=== PATIENT | male | born 1960 | race Caucasian/White ===

== ENCOUNTER 2017-09-09 01:07 | Emergency (ER) | payer OTHER ==
[~2017-09-09] VITALS: Ht 175.3 cm; Wt 77.1 kg
[~2017-09-09 01:07] MED LIST changes: -LISI-362 PO; -METO25TA23 PO; -SIMV-49 PO
--- NOTE | 2017-09-09 01:10 | ER Report ---
History and Physical Time Seen By MD: 01:10 HPI/ROS CHIEF COMPLAINT: episodes of left arm and left leg weakness HISTORY OF PRESENT ILLNESS: This is a 57 year old male. He has been having episodes of short term (30-60 seconds) of weakness tonight that started at 2100 hours. He had 5 episodes of this at home. [place] like his left face, arm and leg were heavy, then would go away completely. He would feel a little nauseated and mild shortness of breath right afterward. He came to the hospital ER and has no current symptoms. He has a history of cardiac stent and a new pacemaker in March of 2017. He denies chest pain or palpitations. His notes no slurred speech or confusion. The patient has some abnormal sensation in the face , arm and leg as well. He took 2 full dose aspirin at home. He takes Metoprolol , Lisinopril and Simvastatin. 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 No recent illnesses. He has never had anything like this happen previously. When these happen he almost falls because the left leg will not support him. REVIEW OF SYSTEMS: Constitutional: No fever or chills. Eyes: No vision changes. ENT: No sore throat. No congestion. No hearing changes. Cardiovascular: No chest pain. No palpitations. Respiratory: No cough. Gastrointestinal: No abdominal pain. No change in bowel movements. Genitourinary: No dysuria. No frequency Musculoskeletal: No back pain. No extremity pain. Skin: No rashes. No bruising. Neurological: No headache Allergies: Coded Allergies: No Known Drug Allergies (Unverified , 06/02/16) Home Meds Reported Medications Lisinopril (LISINOPRIL) 10 Mg Tablet, 10 MG PO QDAY, TAB 09/09/17 Metoprolol Succinate (METOPROLOL SUCCINATE) 25 Mg Tab.er.24h, 1 TAB PO QDAY, TAB 09/09/17 Simvastatin (SIMVASTATIN) 20 Mg Tablet, PO HS, TAB 09/09/17 Discontinued Reported Medications [Metoprolol] No Conflict Check, PO DAILY 11/09/12 [Lisinopril] No Conflict Check, PO DAILY 11/09/12 Discontinued Scripts Hydrocodone Bit/Acetaminophen (HYDROCODON-ACETAMINOPHEN 5-325) 1 Each Tablet, 1 EACH PO Q4-6H for PAIN, #15 Prov:CATERINA GREY DO 07/17/15 Clindamycin Hcl (CLINDAMYCIN HCL) 300 Mg Capsule, 300 MG PO Q6H, #40 CAPSULE Prov:CATERINA GREY DO 07/17/15 Past Medical/Surgical History History of [place] and cardiac stent, cardiac pacemaker, hypertension, hyperlipidemia , inguinal hernia repair Reviewed Nurses Notes: Yes Hx Smoking: Yes (1/2 PPD) Smoking Status: Current: Every Day Smoker Hx Substance Use Disorder: No Hx Alcohol Use: No Constitutional Vital Sign - Last 24 Hours 09/09/17 09/09/17 09/09/17 09/09/17 01:07 01:22 01:24 01:30 Pulse ? B/P (MAP) 148/98 (115) 141/89 (106) 09/09/17 09/09/17 09/09/17 09/09/17 01:37 01:52 02:00 02:05 Temp 98.0 Pulse 74 94 73 Resp 19 17 B/P (MAP) 146/90 (108) Pulse Ox 91 95 94 09/09/17 09/09/17 09/09/17 09/09/17 02:20 02:55 03:00 03:10 Pulse 74 70 76 Resp 21 19 35 B/P (MAP) 127/78 (94) Pulse Ox 94 92 96 09/09/17 09/09/17 09/09/17 09/09/17 03:25 03:30 03:30 03:40 Pulse ??? 71 Resp 14 7 B/P (MAP) 148/90 (109) Pulse Ox 96 97 O2 Flow Rate 2.0 09/09/17 09/09/17 09/09/17 09/09/17 03:45 04:00 04:05 04:20 Pulse 74 75 72 69 Resp 10 12 28 13 B/P (MAP) 149/98 (115) Pulse Ox 97 81 97 98 09/09/17 09/09/17 09/09/17 04:25 04:30 04:40 Pulse 73 66 Resp 14 33 B/P (MAP) 144/104 (117) Pulse Ox 94 91 Physical Exam General Appearance: The patient is alert. No acute distress. Non-toxic in appearance. Eyes: Pupils are equal, round. Reactive to light. No pallor, injection or icterus. Extraocular movements are intact. No nystagmus. No visual field deficits. ENT: Mucous membranes are moist. Normal oral mucosa. Posterior oropharynx is normal. Neck: Supple and non tender. No lymphadenopathy. Respiratory: Breathing easily and unlabored. Lungs are clear to auscultation. Cardiovascular: Regular rate and rhythm. No murmurs, gallops or rubs. Normal capillary refill. No edema. No carotid bruits. Gastrointestinal: Abdomen is soft and non tender. Nondistended. Normal active bowel sounds. Neurological: Alert and oriented x3. Cranial nerves with eye exam as noted above. Midline tongue and symmetric palate elevation. Normal facial sensation throughout and no facial weakness. No focal neurologic deficits in the extremities on exam with normal strength and sensation bilaterally. Normal reflexes. Normal heel to jewell and finger to nose. Skin: Warm and dry. No rashes. Musculoskeletal: Extremities are nontender. Full range of motion. DIFFERENTIAL DIAGNOSIS: After history and physical exam, differential diagnosis was considered for a patient with focal neurologic deficits that are short lived and then go back to normal. Concern for possible source of emboli somewhere in the body such as carotid sore from his heart/pacemaker area. Prior to history and physical, a stat head CT was obtained and this result is pending. NIH stroke scale was also done as noted. NIH stroke scale was done and the patient scored zero points at this time. No deficits at this time. Medical Decision Making Data Points Result Diagram: 09/09/1712909/09/17129 Laboratory Hematology Test 09/09/17 01:30 09/09/17 01:46 09/09/17 03:20 Red Blood Count 5.05 M/uL (4.00-5.60) Mean Corpuscular Volume 85.9 fL (80.0-96.0) Mean Corpuscular Hemoglobin 29.6 pg (26.0-33.0) Mean Corpuscular Hemoglobin Concent 34.5 g/dL (32.0-36.0) Red Cell Distribution Width 14.2 % (11.5-14.5) Mean Platelet Volume 8.1 fL (7.2-11.1) Neutrophils (%) (Auto) 59.5 % (39.4-72.5) Lymphocytes (%) (Auto) 23.2 % (17.6-49.6) Monocytes (%) (Auto) 11.5 % (4.1-12.4) Eosinophils (%) (Auto) 4.6 % (0.4-6.7) Basophils (%) (Auto) 1.2 % (0.3-1.4) Nucleated RBC Relative Count (auto) 0.0 /100WBC Neutrophils # (Auto) 4.6 K/uL (2.0-7.4) Lymphocytes # (Auto) 1.8 K/uL (1.3-3.6) Monocytes # (Auto) 0.9 K/uL (0.3-1.0) Eosinophils # (Auto) 0.4 K/uL (0.0-0.5) Basophils # (Auto) 0.1 K/uL (0.0-0.1) Nucleated RBC Absolute Count (auto) 0.00 K/uL Prothrombin Time 12.6 seconds (12.0-14.4) Prothromb Time International Ratio 0.95 Activated Partial Thromboplast Time 27 seconds (23-35) Sodium Level 139 mmol/L (137-145) Potassium Level 4.1 mmol/L (3.5-5.0) Chloride Level 106 mmol/L (98-107) Carbon Dioxide Level 23 mmol/L (22-30) Blood Urea Nitrogen 24 mg/dl (9-21) Creatinine 1.00 mg/dl (0.66-1.25) Glomerular Filtration Rate Calc > 60.0 Random Glucose 111 mg/dl (75-110) Calcium Level 8.9 mg/dl (8.4-10.2) Total Bilirubin 0.4 mg/dl (0.2-1.3) Aspartate Amino Transf (AST/SGOT) 27 U/L (0-35) Alanine Aminotransferase (ALT/SGPT) 40 U/L (0-56) Alkaline Phosphatase 73 U/L (0-126) Total Protein 7.2 gm/dl (6.3-8.2) Albumin 4.1 g/dl (3.5-5.0) Whole Blood Glucose 132 mg/DL (75-110) Troponin I < 0.012 ng/ml Chemistry Test 09/09/17 01:30 09/09/17 01:46 09/09/17 03:20 White Blood Count 7.7 k/uL (4.5-11.0) Red Blood Count 5.05 M/uL (4.00-5.60) Hemoglobin 15.0 g/dL (14.0-18.0) Hematocrit 43.4 % (42.0-52.0) Mean Corpuscular Volume 85.9 fL (80.0-96.0) Mean Corpuscular Hemoglobin 29.6 pg (26.0-33.0) Mean Corpuscular Hemoglobin Concent 34.5 g/dL (32.0-36.0) Red Cell Distribution Width 14.2 % (11.5-14.5) Platelet Count 173 K/uL (150-450) Mean Platelet Volume 8.1 fL (7.2-11.1) Neutrophils (%) (Auto) 59.5 % (39.4-72.5) Lymphocytes (%) (Auto) 23.2 % (17.6-49.6) Monocytes (%) (Auto) 11.5 % (4.1-12.4) Eosinophils (%) (Auto) 4.6 % (0.4-6.7) Basophils (%) (Auto) 1.2 % (0.3-1.4) Nucleated RBC Relative Count (auto) 0.0 /100WBC Neutrophils # (Auto) 4.6 K/uL (2.0-7.4) Lymphocytes # (Auto) 1.8 K/uL (1.3-3.6) Monocytes # (Auto) 0.9 K/uL (0.3-1.0) Eosinophils # (Auto) 0.4 K/uL (0.0-0.5) Basophils # (Auto) 0.1 K/uL (0.0-0.1) Nucleated RBC Absolute Count (auto) 0.00 K/uL Prothrombin Time 12.6 seconds (12.0-14.4) Prothromb Time International Ratio 0.95 Activated Partial Thromboplast Time 27 seconds (23-35) Glomerular Filtration Rate Calc > 60.0 Calcium Level 8.9 mg/dl (8.4-10.2) Total Bilirubin 0.4 mg/dl (0.2-1.3) Aspartate Amino Transf (AST/SGOT) 27 U/L (0-35) Alanine Aminotransferase (ALT/SGPT) 40 U/L (0-56) Alkaline Phosphatase 73 U/L (0-126) Total Protein 7.2 gm/dl (6.3-8.2) Albumin 4.1 g/dl (3.5-5.0) Whole Blood Glucose 132 mg/DL (75-110) Troponin I < 0.012 ng/ml Coagulation Test 09/09/17 01:30 Prothrombin Time 12.6 seconds Prothromb Time International Ratio 0.95 Activated Partial Thromboplast Time 27 seconds EKG/Imaging EKG Interpretation 12 lead EKG: At 0130 hours Rhythm: normal sinus rhythm, rate 75 [place]: normal QRS: Old inferior infarct with Q waves in the inferior leads ST segments: Nonspecific T-wave changes with some T-wave inversions in the inferior leads. No ST segment elevation or depression 12 lead EKG: At 0320 hours Rhythm: normal sinus rhythm, rate 70 [place]: normal QRS: Old inferior infarct ST segments: Nonspecific T-wave changes with some T-wave inversion in the inferior leads Monitor Interpretation: Other (occasionally paced, occasionally sinus) Imaging EXAMINATION: CT Head Without Contrast 09/09/2017 1:14 AM HISTORY: Woke up with left arm and leg weakness. History of [place]. TECHNIQUE: Contiguous axial images were obtained from the skull base to the vertex without intravenous contrast. One of the following dose optimization techniques was utilized in the performance of this exam: Automated exposure control; adjustment of the mA and/ or kV according to the patient's size; or use of an iterative reconstruction technique. Specific details can be referenced in the facility's radiology CT exam operational policy. COMPARISON STUDIES: none. FINDINGS: Ventricles / sulci / fissures: negative Masses / hemorrhage / midline shift: negative White matter: negative Kirby-white differentiation: negative Extra-axial spaces: negative Dural venous sinuses / arterial structures: negative Skull base / calvarium: negative Visualized mastoid air cells / paranasal sinuses: negative IMPRESSION: Normal head CT. No evidence of mass, acute ischemia or hemorrhage. Report Dictated By: Pancho Garcia MD at 09/09/2017 1:31 AM EXAMINATION: Portable AP Chest 09/09/2017 1:33 AM HISTORY: Left arm and leg weakness. History of FL. COMPARISON: 03/27/2007 FINDINGS: Cardiomediastinal contours: Normal heart size. Atherosclerotic aorta. Transvenous pacemaker lead tips project over the right atrium and right ventricle. Lungs and pleura: Normal Bones/soft tissues: Normal Cardiac leads are present. IMPRESSION: No acute cardiopulmonary finding. Report Dictated By: Pancho Garcia MD at 09/09/2017 1:52 AM ED Course/Re-evaluation Clinical Indication for ER IV: IV Access ED Course CT scan done, NIH stroke scale done, score 0. IV access obtained and labs sent. Fingerstick blood glucose 132. CT scan of the head noncontrast was negative. Normal chest x-ray. EKG is electronic ventricular pacemaker. Labs are unremarkable. Troponin is negative. After this evaluation, the patient begin having further episodes. He had 3 more episodes with symptoms lasting about 30 seconds to one minute and time. On the last episode, during evaluation the patient did have slight decrease in strength in the left arm and left leg compared to the right side and his did notice some increased facial droop however these have resolved completely again. I called and spoke with Dr. Lucia, at [facility] in [facility]. After our conversation, we elected to do a CT angiogram of the head and carotids. The patient has taken 2 full dose aspirin earlier this evening prior to coming to the hospital. At this point we are going to hold off on using any heparin, consideration of thrombolytics if advancing on to CVA instead of transient attacks while we do further investigation with the CT angiography. CTA of the neck/carotids and CTA of the head were obtained. He had a mild 25% stenosis of the origin of the left vertebral artery, but no other significant stenosis. He has had several more episodes while getting these studies. These all had symptoms that lasted longer, but then would resolve. He is more and more fatigued with these and naturally he and family members are very scared about this. I called and spoke with Dr. Lucia again at [facility]. We are going to transfer the patient to them for further evaluation and treatment. We discussed further treatments and will give a loading dose of 600mg of Plavix and arrange ground ambulance transfer there. I have discussed the plans with the patient and family. While awaiting transfer, the patient did continue to have more episodes. The episodes seemed to have slightly longer recovery and more pronounced weakness during the episodes. He was very fatigued and continued to have some shortness of breath after the episodes. He would still recover functioning in between episodes, so still no evidence of a permanent deficit. To help with the transfer , we did provide him with a dose of 0.5mg of Ativan prior to departing. Decision to Disposition Date: Sep 09, 2017 Decision to Disposition Time: 03:43 Transfer Facility Patient was transferred to [facility] via ambulance. This is felt to be the appropriate facility based on the concern of frequent transient ischemic attacks and is a stroke center. The transfer was emergent, and was required because the capabilities of the receiving hospital. Consent for transfer was obtained from the patient. See EMTALA for transfer orders. Depart Departure Latest Vital Signs Vital Signs Date Time Temp Pulse Resp B/P (MAP) Pulse Ox O2 Delivery O2 Flow Rate FiO2 09/09/17 04:40 66 33 91 09/09/17 04:30 144/104 (117) 09/09/17 03:30 2.0 09/09/17 02:00 98.0 Impression: Primary Impression: Crescendo transient ischemic attacks Condition: Condition Unchanged Disposition: XFER TO [facility]UTE [facility]ARE [facility] Problem Qualifiers Primary Impression: Crescendo transient ischemic attacks Transient cerebral ischemia type: unspecified Qualified Codes: G45.9 - Transient cerebral ischemic attack, unspecified JACKELYN ADAMSON MD Sep 09, 2017 01:10
--- NOTE | 2017-09-09 01:40 | RADIOLOGY IMAGING REPORT ---
FACILITY: [facility] PATIENT NAME: Dariel Solis : 1960 MR: [id number] V: [id number] EXAM DATE: ORDERING PHYSICIAN: JACKELYN ADAMSON TECHNOLOGIST: [place] [facility] [place] Patient: Dariel Solis : 1960 Visit/Account:[id number] Date of Sevice: 09/09/2017 EXAMINATION: CT Head Without Contrast 09/09/2017 1:14 AM HISTORY: Woke up with left arm and leg weakness. History of [place]. TECHNIQUE: Contiguous axial images were obtained from the skull base to the vertex without intraven ous contrast. One of the following dose optimization techniques was utilized in the performance of this exam: Autom ated exposure control; adjustment of the mA and/or kV according to the patient's size; or use of an i terative reconstruction technique. Specific details can be referenced in the facility's radiology C T exam operational policy. COMPARISON STUDIES: none. FINDINGS: Ventricles / sulci / fissures: negative Masses / hemorrhage / midline shift: negative White matter: negative Kirby-white differentiation: negative Extra-axial spaces: negative Dural venous sinuses / arterial structures: negative Skull base / calvarium: negative Visualized mastoid air cells / paranasal sinuses: negative IMPRESSION: Normal head CT. No evidence of mass, acute ischemia or hemorrhage. Report Dictated By: Pancho Garcia MD at 09/09/2017 1:31 AM Report E-Signed By: Pancho Garcia MD at 09/09/2017 1:34 AM WSN:[id number]
[2017-09-09 01:43] LABS: PLATELET COUNT, AUTOMATED 173 K/uL (150-450)
[2017-09-09 01:47] LABS: INR 0.95
--- NOTE | 2017-09-09 01:58 | RADIOLOGY IMAGING REPORT ---
FACILITY: [facility] PATIENT NAME: Dariel Solis : 1960 MR: [id number] V: [id number] EXAM DATE: ORDERING PHYSICIAN: JACKELYN ADAMSON TECHNOLOGIST: Location: [facility] - [place] Patient: Dariel Solis : 1960 Visit/Account:[id number] Date of Sevice: 09/09/2017 EXAMINATION: Portable AP Chest 09/09/2017 1:33 AM HISTORY: Left arm and leg weakness. History of [place]. COMPARISON: 03/27/2007 FINDINGS: Cardiomediastinal contours: Normal heart size. Atherosclerotic aorta. Transvenous pacemaker lead tips project over the right atrium and right ventricle. Lungs and pleura: Normal Bones/soft tissues: Normal Cardiac leads are present. IMPRESSION: No acute cardiopulmonary finding. Report Dictated By: Pancho Garcia MD at 09/09/2017 1:52 AM Report E-Signed By: Pancho Garcia MD at 09/09/2017 1:53 AM WSN:[id number]
[2017-09-09] MEDS ORDERED: SIMV-49 PO (02:03)
[2017-09-09] MEDS ORDERED: METO25TA23 PO (02:03)
[2017-09-09] MEDS ORDERED: LISI-362 PO (02:03)
[2017-09-09] MEDS ORDERED: ONDANSETRON 4 MG/2 ML VIAL IVP ONE (02:20)
[2017-09-09] MEDS ORDERED: NS 0.9% 50 ML VIAL 100 ML ONE (02:22)
[2017-09-09] MEDS ORDERED: IOPAMIDOL 76% 75 ML INFUS BTL 75 ML ONE (02:22)
--- NOTE | 2017-09-09 03:21 | RADIOLOGY IMAGING REPORT ---
FACILITY: [facility] [place] PATIENT NAME: Dariel Solis : 1960 MR: [id number] V: [id number] EXAM DATE: ORDERING PHYSICIAN: JACKELYN ADAMSON TECHNOLOGIST: Location: [facility] - [place] Patient: Dariel Solis : 1960 Visit/Account:[id number] Date of Sevice: 09/09/2017 ADDENDUM #1 Correction to the examination title: CTA NECK/CAROTIDS AND CTA BRAIN W CONTR Report Dictated By: Candis Kemp at 09/09/2017 3:13 AM Report E-Signed By: Candis Kemp at 09/09/2017 3:14 AM ORIGINAL REPORT CTA NECK/CAROTIDS W W/O CONTR HISTORY: Left arm and leg weakness. COMPARISON: Head CT 09/09/2017 at 1:18 AM. TECHNIQUE: Overlapping thin sections were obtained during a bolus of IV contrast from the aortic arch through the brain vertex. Reconstruction of the source data set includes multiplanar 2D in the sagit rocío and coronal planes, and 3D coronal thin slab MIP series. Level Vial Curvature Gauger images have been stored o n PACS. Stenosis of the internal carotid arteries are calculated using NASCET criteria. One of the following dose optimization techniques was utilized in the performance of this exam: Autom ated exposure control; adjustment of the mA and/or kV according to the patient's size; or use of an i terative reconstruction technique. Specific details can be referenced in the facility's radiology CT exam operational policy. CONTRAST: 75 mL of IV Isovue-370. FINDINGS: CTA HEAD: There is mild atherosclerosis of the cavernous and ophthalmic segments of the internal carotid arteri es. No aneurysm, thrombus/embolus, stenosis, or higher flow vascular malformation. CTA NECK: Aortic arch and great vessels: There is mild atherosclerosis, but no aneurysm or dissection. There is mild atherosclerosis of the origins of the subclavian arteries and of the left common carotid artery . No stenosis. Right CCA / ICA / ECA: There is mild atherosclerosis at the carotid bifurcation. No stenosis. Left CCA / ICA / ECA: There is mild atherosclerosis at the carotid bifurcation. No stenosis. Vertebral arteries: The right vertebral artery is normal. There is mild atherosclerosis at the origin of the left vertebral artery, causing 25 percent stenosis. The left vertebral artery is dominant. Soft tissues: Normal. Pacemaker generator is at the left upper chest. Leads are visible as far as the superior vena cava. Musculoskeletal: There is straightening of the normal cervical lordosis that appears positional. Ther e is multilevel degenerative change of the spine that is greatest at C5-6 and C6-7. At these levels, there are severe loss of disc height and circumferential disc osteophytes. Prevertebral soft tissues are within normal limits. There is mild to moderate spinal stenosis at C5-6, and there is mild spinal stenosis at C6-7 secondary to degenerative changes. Upper chest: There is mild dependent atelectasis. IMPRESSION: 1. Mild intra- and extracranial atherosclerosis as above. There is no stenosis of the carotid arterie s or of the right vertebral artery. 2. There is 25 percent stenosis of the left vertebral artery origin. 3. Degenerative changes of the spine. There is mild to moderate spinal stenosis at C5-6 and mild spin al stenosis at C6-7. These findings were discussed by phone with JACKELYN ADAMSON on 09/09/2017 3:06 AM. Report Dictated By: Candis Kemp at 09/09/2017 2:53 AM Report E-Signed By: Candis Kemp at 09/09/2017 3:11 AM WSN:[id number]
--- NOTE | 2017-09-09 03:21 | RADIOLOGY IMAGING REPORT ---
[place] [facility] [place] Dariel Solis : 1960 MR: [id number] V: [id number] EXAM DATE: ORDERING PHYSICIAN: JACKELYN ADAMSON TECHNOLOGIST: Location: [facility] Patient: Dariel Solis : 1960 Visit/Account:[id number] Date of Sevice: 09/09/2017 CTA NECK/CAROTIDS AND CTA BRAIN W CONTR HISTORY: Left arm and leg weakness. COMPARISON: Head CT 09/09/2017 at 1:18 AM. TECHNIQUE: Overlapping thin sections were obtained during a bolus of IV contrast from the aortic arch through the brain vertex. Reconstruction of the source data set includes multiplanar 2D in the sagit rocío and coronal planes, and 3D coronal thin slab MIP series. Technical Recruiter images have been stored o n PACS. Stenosis of the internal carotid arteries are calculated using NASCET criteria. One of the following dose optimization techniques was utilized in the performance of this exam: Autom ated exposure control; adjustment of the mA and/or kV according to the patient's size; or use of an i terative reconstruction technique. Specific details can be referenced in the facility's radiology CT exam operational policy. CONTRAST: 75 mL of IV Isovue-370. FINDINGS: CTA HEAD: There is mild atherosclerosis of the cavernous and ophthalmic segments of the internal carotid arteri es. No aneurysm, thrombus/embolus, stenosis, or higher flow vascular malformation. CTA NECK: Aortic arch and great vessels: There is mild atherosclerosis, but no aneurysm or dissection. There is mild atherosclerosis of the origins of the subclavian arteries and of the left common carotid artery . No stenosis. Right CCA / ICA / ECA: There is mild atherosclerosis at the carotid bifurcation. No stenosis. Left CCA / ICA / ECA: There is mild atherosclerosis at the carotid bifurcation. No stenosis. Vertebral arteries: The right vertebral artery is normal. There is mild atherosclerosis at the origin of the left vertebral artery, causing 25 percent stenosis. The left vertebral artery is dominant. Soft tissues: Normal. Pacemaker generator is at the left upper chest. Leads are visible as far as the superior vena cava. Musculoskeletal: There is straightening of the normal cervical lordosis that appears positional. Ther e is multilevel degenerative change of the spine that is greatest at C5-6 and C6-7. At these levels, there are severe loss of disc height and circumferential disc osteophytes. Prevertebral soft tissues are within normal limits. There is mild to moderate spinal stenosis at C5-6, and there is mild spinal stenosis at C6-7 secondary to degenerative changes. Upper chest: There is mild dependent atelectasis. IMPRESSION: 1. Mild intra- and extracranial atherosclerosis as above. There is no stenosis of the carotid arterie s or of the right vertebral artery. 2. There is 25 percent stenosis of the left vertebral artery origin. 3. Degenerative changes of the spine. There is mild to moderate spinal stenosis at C5-6 and mild spin al stenosis at C6-7. These findings were discussed by phone with JACKELYN ADAMSON on 09/09/2017 3:06 AM. Report Dictated By: Candis Kemp at 09/09/2017 3:13 AM Report E-Signed By: Candis Kemp at 09/09/2017 3:13 AM WSN:[id number]
--- NOTE | 2017-09-09 03:24 | EKG ---
FACILITY: [facility] PATIENT NAME: MARIA INES LAYNE : [id number] MR: [id number] V: [id number] EXAM DATE: ORDERING PHYSICIAN: JACKELYN ADAMSON TECHNOLOGIST: Test Reason : Blood Pressure : / mmHG Vent. Rate : 070 BPM Atrial Rate : 070 BPM P-R Int : 164 ms QRS Dur : 122 ms QT Int : 420 ms P-R-T Axes : 045 -10 -32 degrees QTc Int : 453 ms Normal sinus rhythm Inferior infarct , age undetermined Abnormal ECG No previous ECGs available Confirmed by ASHLEY HUTCHINS ([id number]) on 09/09/2017 7:19:09 AM Referred By: Confirmed By:ASHLEY HUTCHINS
--- NOTE | 2017-09-09 03:24 | EKG ---
FACILITY: [facility] PATIENT NAME: MARIA INES LAYNE : [id number] MR: [id number] V: [id number] EXAM DATE: ORDERING PHYSICIAN: JACKELYN ADAMSON TECHNOLOGIST: Test Reason : WEAKNESS Blood Pressure : / mmHG Vent. Rate : 075 BPM Atrial Rate : 075 BPM P-R Int : 164 ms QRS Dur : 118 ms QT Int : 422 ms P-R-T Axes : 052 -17 -37 degrees QTc Int : 471 ms Electronic ventricular pacemaker When compared with ECG of 11-AUG-2016 14:31, Electronic ventricular pacemaker has replaced Sinus rhythm Confirmed by ASHLEY HUTCHINS ([id number]) on 09/09/2017 7:19:01 AM Referred By: SNOW Confirmed By:ASHLEY HUTCHINS
[2017-09-09] MEDS ORDERED: CLOPIDOGREL BISULFATE 75MG TAB PO ONE (03:35)
[2017-09-09 04:30] VITALS: BP 144/104
[2017-09-09] MEDS ORDERED: LORazepam 2 MG/ML VIAL ONE (04:44)
[2017-09-09] MEDS ORDERED: LORazepam 2 MG/ML VIAL IVP ONE (04:45)
== END 2017-09-09 04:55 | disposition short-term general hospital (02) ==
LOC: ER 01:09
DX: G45.9 Transient cerebral ischemic attack, unspecified (principal)
CPT/HCPCS: 36416; 70450; 70496; 70498; 71045; 82948; 84484; 85025; 85610; 85730; 93005; 96374; 96375; 99285; J2060; J2405; J7050; Q9967; 82040; 82247; 82310; 82374; 82435; 82565; 82947; 84075; 84132; 84155; 84295; 84450; 84460; 84520

== ENCOUNTER → 2017-09-09 | Outpatient (CLI) | payer OTHER ==
[~2017-09-09] MED LIST: CLIN300C99 PO; LISI-362 PO; LISINOPRIL PO; LOR5/325 PO; METO25TA23 PO; METOPROLOL PO; SIMV-49 PO
== END ==
LOC: AMB 04:25
PROVIDERS: ATTEND Nurse Practitioner
DX: G45.9 Transient cerebral ischemic attack, unspecified (principal)
CPT/HCPCS: A0425; A0426

== ENCOUNTER 2018-05-13 09:07 | Emergency (ER) | payer OTHER ==
[~2018-05-13 09:07] MED LIST changes: +LISI-362 PO; +METO25TA23 PO; +SIMV-49 PO
--- NOTE | 2018-05-13 09:24 | ER Report ---
History and Physical Time Seen By MD: 09:18 Hx. of Stated Complaint: PATIENT REPORTS BLOOD AND BLOOD CLOTS IN URINE. HPI/ROS CHIEF COMPLAINT: Blood in urine HISTORY OF PRESENT ILLNESS: This is a 57-year-old male. He started having blood in his urine last night. He has been urinating gross hematuria with clots. He has had some dark or rust colored urine a couple of times over the past few months that it always went away and went back to normal. He has a little bit of discomfort and fullness feeling like he is not emptying his bladder completely, although he is able to still urinate. No pain in the back. Mild discomfort in the lower abdomen anteriorly. No other bleeding such as nosebleeds, blood in the stools, or bruising. He does take Plavix and aspirin. Denies any fevers or chills. Normal bowels without constipation or diarrhea. No history of hematuria in the past. No history of kidney problems, bladder problems, or problems with this prostate that he is aware of. Denies any chest pain or shortness of breath. No weakness. REVIEW OF SYSTEMS: As above. Allergies: Coded Allergies: No Known Drug Allergies (Unverified , 06/02/16) Home Meds Active Scripts Tamsulosin Hcl (FLOMAX) 0.4 Mg Cap.er.24h, 0.4 MG PO QDAY, #7 CAP 0 Refills Prov:JACKELYN ADAMSON MD 05/13/18 Sulfamethoxazole/Trimet 800-160 Mg Tab (BACTRIM DS TABLET) 1 Each Tablet, 1 TAB PO Q12H, #14 TAB 0 Refills Prov:JACKELYN ADAMSON MD 05/13/18 Reported Medications Metoprolol Tartrate (METOPROLOL TARTRATE) 25 Mg Tablet, 2 TAB PO BID, TAB 05/13/18 Lisinopril (LISINOPRIL) 10 Mg Tablet, 10 MG PO QDAY, TAB 05/13/18 Clopidogrel Bisulfate (PLAVIX) 75 Mg Tablet, 1 TAB PO QDAY, TAB 05/13/18 Atorvastatin Calcium (LIPITOR) 40 Mg Tablet, 2 TAB PO QHS, TAB 05/13/18 Discontinued Reported Medications Lisinopril (LISINOPRIL) 10 Mg Tablet, 10 MG PO QDAY, TAB 09/09/17 Metoprolol Succinate (METOPROLOL SUCCINATE) 25 Mg Tab.er.24h, 1 TAB PO QDAY, TAB 09/09/17 Simvastatin (SIMVASTATIN) 20 Mg Tablet, PO HS, TAB 09/09/17 Reviewed Nurses Notes: Yes Hx Smoking: Yes (1/2 PPD) Smoking Status: Current: Every Day Smoker Hx Substance Use Disorder: No Hx Alcohol Use: No Constitutional Vital Sign - Last 24 Hours 05/13/18 05/13/18 05/13/18 05/13/18 09:11 09:14 09:37 10:04 Temp 98.6 Pulse 96 67 Resp 20 B/P (MAP) 165/106 165/106 (125) 146/102 (117) Pulse Ox 100 94 05/13/18 05/13/18 10:07 10:59 Pulse 61 61 B/P (MAP) 150/91 (110) Pulse Ox 95 94 Physical Exam General Appearance: The patient is alert. No acute distress. Eyes: Pupils are equal, round. No pallor, injection or icterus. ENT: Mucous membranes are moist. Respiratory: Breathing easily, clear. Cardiovascular: Regular rate and rhythm. Gastrointestinal: Abdomen is soft and non tender, but a little bit of discomfort suprapubic. Nondistended. Normal active bowel sounds. No CVA tenderness Neurological: Alert and oriented x3. Skin: Warm and dry. No bruising. DIFFERENTIAL DIAGNOSIS: After history and physical exam, differential diagnosis was considered for hematuria, having episodes of urinary obstruction but these seems to improve and he is able to pass the clots right now. Medical Decision Making Data Points Result Diagram: 05/13/18 0943 05/13/18 0943 Laboratory Hematology Test 05/13/18 09:43 Red Blood Count 4.84 M/uL (4.00-5.60) Mean Corpuscular Volume 89.5 fL (80.0-96.0) Mean Corpuscular Hemoglobin 30.2 pg (26.0-33.0) Mean Corpuscular Hemoglobin Concent 33.7 g/dL (32.0-36.0) Red Cell Distribution Width 14.2 % (11.5-14.5) Mean Platelet Volume 8.3 fL (7.2-11.1) Neutrophils (%) (Auto) 67.8 % (39.4-72.5) Lymphocytes (%) (Auto) 18.8 % (17.6-49.6) Monocytes (%) (Auto) 9.3 % (4.1-12.4) Eosinophils (%) (Auto) 3.1 % (0.4-6.7) Basophils (%) (Auto) 1.0 % (0.3-1.4) Nucleated RBC Relative Count (auto) 0.0 /100WBC Neutrophils # (Auto) 5.1 K/uL (2.0-7.4) Lymphocytes # (Auto) 1.4 K/uL (1.3-3.6) Monocytes # (Auto) 0.7 K/uL (0.3-1.0) Eosinophils # (Auto) 0.2 K/uL (0.0-0.5) Basophils # (Auto) 0.1 K/uL (0.0-0.1) Nucleated RBC Absolute Count (auto) 0.00 K/uL Prothrombin Time 13.0 seconds (12.0-14.4) Prothromb Time International Ratio 0.98 Activated Partial Thromboplast Time 26 seconds (23-35) Urine Color Red Urine Clarity Not available Urine pH Color interference Urine Specific [place] Color interference Urine Protein Color interference Urine Glucose (UA) Color interference Urine Ketones Color interference Urine Blood Color interference Urine Nitrite Color interference Urine Bilirubin Color interference Urine Urobilinogen Color interference Urine Leukocyte Esterase Color interference Urine RBC Tntc /HPF (0-2/HPF) Urine WBC None /HPF (0-5/HPF) Urine Squamous Epithelial Cells None /LPF (</=FEW) Urine Bacteria /HPF (NONE-FEW) Urine Mucus None /HPF (NONE-FEW) Sodium Level 142 mmol/L (137-145) Potassium Level 3.8 mmol/L (3.5-5.0) Chloride Level 107 mmol/L (98-107) Carbon Dioxide Level 24 mmol/L (22-30) Blood Urea Nitrogen 16 mg/dl (9-21) Creatinine 0.70 mg/dl (0.66-1.25) Glomerular Filtration Rate Calc > 60.0 Random Glucose 113 mg/dl (75-110) Calcium Level 9.0 mg/dl (8.4-10.2) Total Bilirubin 0.3 mg/dl (0.2-1.3) Aspartate Amino Transf (AST/SGOT) 24 U/L (0-35) Alanine Aminotransferase (ALT/SGPT) 34 U/L (0-56) Alkaline Phosphatase 57 U/L (0-126) Total Protein 6.8 g/dl (6.3-8.2) Albumin 4.0 g/dl (3.5-5.0) Chemistry Test 05/13/18 09:43 White Blood Count 7.5 k/uL (4.5-11.0) Red Blood Count 4.84 M/uL (4.00-5.60) Hemoglobin 14.6 g/dL (14.0-18.0) Hematocrit 43.3 % (42.0-52.0) Mean Corpuscular Volume 89.5 fL (80.0-96.0) Mean Corpuscular Hemoglobin 30.2 pg (26.0-33.0) Mean Corpuscular Hemoglobin Concent 33.7 g/dL (32.0-36.0) Red Cell Distribution Width 14.2 % (11.5-14.5) Platelet Count 182 K/uL (150-450) Mean Platelet Volume 8.3 fL (7.2-11.1) Neutrophils (%) (Auto) 67.8 % (39.4-72.5) Lymphocytes (%) (Auto) 18.8 % (17.6-49.6) Monocytes (%) (Auto) 9.3 % (4.1-12.4) Eosinophils (%) (Auto) 3.1 % (0.4-6.7) Basophils (%) (Auto) 1.0 % (0.3-1.4) Nucleated RBC Relative Count (auto) 0.0 /100WBC Neutrophils # (Auto) 5.1 K/uL (2.0-7.4) Lymphocytes # (Auto) 1.4 K/uL (1.3-3.6) Monocytes # (Auto) 0.7 K/uL (0.3-1.0) Eosinophils # (Auto) 0.2 K/uL (0.0-0.5) Basophils # (Auto) 0.1 K/uL (0.0-0.1) Nucleated RBC Absolute Count (auto) 0.00 K/uL Prothrombin Time 13.0 seconds (12.0-14.4) Prothromb Time International Ratio 0.98 Activated Partial Thromboplast Time 26 seconds (23-35) Urine Color Red Urine Clarity Not available Urine pH Color interference Urine Specific [place] Color interference Urine Protein Color interference Urine Glucose (UA) Color interference Urine Ketones Color interference Urine Blood Color interference Urine Nitrite Color interference Urine Bilirubin Color interference Urine Urobilinogen Color interference Urine Leukocyte Esterase Color interference Urine RBC Tntc /HPF (0-2/HPF) Urine WBC None /HPF (0-5/HPF) Urine Squamous Epithelial Cells None /LPF (</=FEW) Urine Bacteria /HPF (NONE-FEW) Urine Mucus None /HPF (NONE-FEW) Glomerular Filtration Rate Calc > 60.0 Calcium Level 9.0 mg/dl (8.4-10.2) Total Bilirubin 0.3 mg/dl (0.2-1.3) Aspartate Amino Transf (AST/SGOT) 24 U/L (0-35) Alanine Aminotransferase (ALT/SGPT) 34 U/L (0-56) Alkaline Phosphatase 57 U/L (0-126) Total Protein 6.8 g/dl (6.3-8.2) Albumin 4.0 g/dl (3.5-5.0) Coagulation Test 05/13/18 09:43 Prothrombin Time 13.0 seconds Prothromb Time International Ratio 0.98 Activated Partial Thromboplast Time 26 seconds Urinalysis Test 05/13/18 09:43 Urine Color Red Urine Clarity Not available Urine pH Color interference Urine Specific [place] Color interference Urine Protein Color interference Urine Glucose (UA) Color interference Urine Ketones Color interference Urine Blood Color interference Urine Nitrite Color interference Urine Bilirubin Color interference Urine Urobilinogen Color interference Urine Leukocyte Esterase Color interference Urine RBC Tntc /HPF (0-2/HPF) Urine WBC None /HPF (0-5/HPF) Urine Squamous Epithelial Cells None /LPF (</=FEW) Urine Bacteria /HPF (NONE-FEW) Urine Mucus None /HPF (NONE-FEW) EKG/Imaging Imaging ABDOMEN/PELVIS W/O CONTRAST HISTORY: Hematuria TECHNIQUE: Axial images were obtained through the abdomen and pelvis without intravenous contrast . One of the following dose optimization techniques was utilized in the performance of this exam: automated exposure control; adjustment of the mA and/or kv according to patient size; or use of iterative reconstruction technique. Specific details can be referenced in the facility's radiology CT exam operational policy. CONTRAST: None COMPARISON: None. FINDINGS: Visualized lung bases: Pacemaker leads. Hepatobiliary: Negative. Spleen: Negative. Adrenals: Negative. Pancreas: Negative. Kidneys/ureters/bladder: 6.8 x 3.6 x 6.5 cm high attenuation bladder mass most consistent with hematoma. No radiopaque urine a tract calculus. No hydronephrosis. Bowel/peritoneum/mesentery: Normal appendix. No bowel obstruction, free air or ascites. Vessels: Moderate arterial calcifications. Lymph nodes: Negative. Pelvic genitourinary: Negative. Bones/body wall: Multilevel severe degenerative disc disease within the spine with endplate sclerosis. Mild levoscoliosis. Other findings: None significant IMPRESSION: 1. There is a 6.8 x 3.6 x 6.5 cm high attenuation bladder most most consistent with hematoma. Underlying mass lesion not excluded. Recommend urology consultation. 2. Negative examination for a radiopaque urinary tract calculus or hydronephrosis. Report Dictated By: Dwight Smith MD at 05/13/2018 10:06 AM ED Course/Re-evaluation Clinical Indication for ER IV: Hydration, IV Access ED Course Patient's blood work is negative. Urine is grossly hematuria. Culture will be done. CT scan showed hematoma in the wall of the bladder but can't rule out a mass. He is still urinating although continuing to have clots. Recommended conservative management with increase fluids. Because I can't rule in or out an infection at this point we will go ahead and start Bactrim DS twice a day. Also start him on some Flomax. He understands come back in if he is not able to urinate or has obstruction that will relief at which time we will need to consider catheter placement. We will refer him on to urology and he will call them on Tuesday to make an appointment unless things worsen after sooner. Decision to Disposition Date: May 13, 2018 Decision to Disposition Time: 10:56 Depart Departure Latest Vital Signs Vital Signs Date Time Temp Pulse Resp B/P (MAP) Pulse Ox O2 Delivery O2 Flow Rate FiO2 05/13/18 10:59 61 150/91 (110) 94 05/13/18 09:11 98.6 20 Impression: Primary Impression: Hematuria Condition: Condition Unchanged Disposition: HOME OR SELF-CARE Referrals: ELIZABETH CABRAL MD New Scripts Tamsulosin Hcl (FLOMAX) 0.4 Mg Cap.er.24h 0.4 MG PO QDAY, #7 CAP 0 Refills Prov: JACKELYN ADAMSON MD 05/13/18 Sulfamethoxazole/Trimet 800-160 Mg Tab (BACTRIM DS TABLET) 1 Each Tablet 1 TAB PO Q12H, #14 TAB 0 Refills Prov: JACKELYN ADAMSON MD 05/13/18 Patient Instructions: Hematuria (ED) Additional Instructions: Increase fluid intake. Stop your aspirin. Take Bactrim DS twice a day. Take Flomax 0.4mg once a day. Call and make a urology appointment on Tuesday. Return if you become unable to urinate with increased pain. Return if you start becoming lightheaded/dizzy when standing. Problem Qualifiers Primary Impression: Hematuria Hematuria type: gross Qualified Codes: R31.0 - Gross hematuria JACKELYN ADAMSON MD May 13, 2018 09:24
[2018-05-13] MEDS ORDERED: CLOP75TA43 PO (09:27)
[2018-05-13] MEDS ORDERED: METO25TA93 PO (09:27)
[2018-05-13] MEDS ORDERED: LISI-362 PO (09:27)
[2018-05-13] MEDS ORDERED: ATOR40TA24 PO (09:27)
[2018-05-13] MEDS ORDERED: NS(*) 0.9% 1000 ML BAG 1,000 ML IV ONE (09:35)
[2018-05-13 09:54] LABS: PLATELET COUNT, AUTOMATED 182 K/uL (150-450)
[2018-05-13 10:00] LABS: INR 0.98
--- NOTE | 2018-05-13 10:14 | RADIOLOGY IMAGING REPORT ---
[place]AC[place] [facility] [place]IENT NAME: Dariel Solis : 1960 MR: [id number] V: [id number] EXAM DATE: ORDERING PHYSICIAN: JACKELYN ADAMSON TECHNOLOGIST: [place] [facility] [place] Patient: Dariel Solis : 1960 Visit/Account:[id number] Date of Sevice: 05/13/2018 ABDOMEN/PELVIS W/O CONTRAST HISTORY: Hematuria TECHNIQUE: Axial images were obtained through the abdomen and pelvis without intravenous contrast . One of the following dose optimization techniques was utilized in the performance of this exam: autom ated exposure control; adjustment of the mA and/or kv according to patient size; or use of iterative reconstruction technique. Specific details can be referenced in the facility's radiology CT exam oper ational policy. CONTRAST: None COMPARISON: None. FINDINGS: Visualized lung bases: Pacemaker leads. Hepatobiliary: Negative. Spleen: Negative. Adrenals: Negative. Pancreas: Negative. Kidneys/ureters/bladder: 6.8 x 3.6 x 6.5 cm high attenuation bladder mass most consistent with hemat evans. No radiopaque urine a tract calculus. No hydronephrosis. Bowel/peritoneum/mesentery: Normal appendix. No bowel obstruction, free air or ascites. Vessels: Moderate arterial calcifications. Lymph nodes: Negative. Pelvic genitourinary: Negative. Bones/body wall: Multilevel severe degenerative disc disease within the spine with endplate sclerosi s. Mild levoscoliosis. Other findings: None significant IMPRESSION: 1. There is a 6.8 x 3.6 x 6.5 cm high attenuation bladder most most consistent with hematoma. Underly ing mass lesion not excluded. Recommend urology consultation. 2. Negative examination for a radiopaque urinary tract calculus or hydronephrosis. Report Dictated By: Dwight Smith MD at 05/13/2018 10:06 AM Report E-Signed By: Dwight Smith MD at 05/13/2018 10:10 AM WSN:[id number]
[2018-05-13] MEDS ORDERED: TAMS0.4C25 PO (10:58)
[2018-05-13] MEDS ORDERED: SULF-198 PO (10:58)
[2018-05-13 10:59] VITALS: BP 150/91
[2018-05-14] MEDS ORDERED: TAMS0.4C25 PO (16:41)
[2018-05-14] MEDS ORDERED: ASPI-1471 PO (16:41)
[2018-05-14] MEDS ORDERED: METO-233 PO (16:41)
[2018-05-14] MEDS ORDERED: ASPI-757 PO (17:48)
[2018-05-14] MEDS ORDERED: [UNRECOGNIZED DRUG - CODE] PO (17:48)
== END 2018-05-13 11:08 | disposition home or self-care (01) ==
LOC: ER 09:14
DX: R31.0 Gross hematuria (principal)
CPT/HCPCS: 74176; 81001; 85025; 85610; 85730; 87088; 96360; 99284; J7030; 82040; 82247; 82310; 82374; 82435; 82565; 82947; 84075; 84132; 84155; 84295; 84450; 84460; 84520

== ENCOUNTER 2018-05-14 14:29 | Inpatient (IN) | payer OTHER ==
[~2018-05-14] VITALS: Ht 175.3 cm; Wt 74.4 kg
[~2018-05-14 14:29] MED LIST changes: +ATOR40TA24 PO; +CLOP75TA43 PO; +METO25TA93 PO; +SULF-198 PO; +TAMS0.4C25 PO
--- NOTE | 2018-05-14 14:38 | ER Report ---
History and Physical Time Seen By MD: 14:38 HPI/ROS CHIEF COMPLAINT: Urinary retention HISTORY OF PRESENT ILLNESS: This is a 57-year-old male who presents to the emergency department for urinary retention and blood clots in the urine. Patient was seen and evaluated in the emergency department yesterday, a CT showed a mass in the bladder, was going to follow-up with urology this week. Patient was able to urinate yesterday, there were clots noted in the urine. Patient was given Bactrim and Flomax. Patient states he's been taking medications. However this morning around 4:00 was having difficulties urinating has not had significant output since. States he did have 1 or 2 brown clots. Does have bladder distention, discomfort. No significant abdominal or back pain. No fevers or chills. Patient does state that about a week ago he did have some cramping in his lower back but that was transient. No chest pain or shortness of breath. Does have some nausea, also some dizziness and lightheadedness since he's not been able to urinate. No focal deficits. Patient did have a stroke in August. Is on Plavix, was instructed to stop taking aspirin yesterday. REVIEW OF SYSTEMS: Constitutional: No fever, no chills. Eyes: No discharge. ENT: No sore throat. Cardiovascular: No chest pain, no palpitations. Respiratory: No cough, no shortness of breath. Gastrointestinal: No abdominal pain, no vomiting. Genitourinary: As above. Musculoskeletal: No back pain. Skin: No rashes. Neurological: As above. Allergies: Coded Allergies: No Known Drug Allergies (Unverified , 06/02/16) Home Meds Active Scripts Tamsulosin Hcl (FLOMAX) 0.4 Mg Cap.er.24h, 0.4 MG PO HS, #7 CAP 0 Refills Prov:YUVAL URBANO MD 05/14/18 Reported Medications Nicotine Polacrilex (Nicotine Lozenge) 2 Mg Lozng.mini, PO PRN 05/14/18 Aspirin (ASPIRIN) 325 Mg Tablet, 325 MG PO QODAY, TAB 05/14/18 Metoprolol Succinate (TOPROL XL) 50 Mg Tab.er.24h, 1 TAB PO HS, TAB 05/14/18 Lisinopril (LISINOPRIL) 10 Mg Tablet, 10 MG PO HS, TAB 05/13/18 Clopidogrel Bisulfate (PLAVIX) 75 Mg Tablet, 1 TAB PO HS, TAB 05/13/18 Atorvastatin Calcium (LIPITOR) 40 Mg Tablet, 2 TAB PO QHS, TAB 05/13/18 Discontinued Reported Medications Metoprolol Tartrate (METOPROLOL TARTRATE) 25 Mg Tablet, 2 TAB PO BID, TAB 05/13/18 Lisinopril (LISINOPRIL) 10 Mg Tablet, 10 MG PO QDAY, TAB 09/09/17 Metoprolol Succinate (METOPROLOL SUCCINATE) 25 Mg Tab.er.24h, 1 TAB PO QDAY, TAB 09/09/17 Simvastatin (SIMVASTATIN) 20 Mg Tablet, PO HS, TAB 09/09/17 Discontinued Scripts Sulfamethoxazole/Trimet 800-160 Mg Tab (BACTRIM DS TABLET) 1 Each Tablet, 1 TAB PO Q12H, #14 TAB 0 Refills Prov:JACKELYN ADAMSON MD 05/13/18 Past Medical/Surgical History The patient has a past medical and surgical history of TIA, has pacemaker, heart attack in 2006, hypertension, coronary artery stent placement, pacemaker placement, inguinal hernia repair. Reviewed Nurses Notes: Yes Hx Smoking: Yes (1/2 PPD) Smoking Status: Current: Every Day Smoker Hx Substance Use Disorder: No Hx Alcohol Use: No Constitutional Vital Sign - Last 24 Hours 05/14/18 05/14/18 05/14/18 05/14/18 14:36 14:36 14:59 15:00 Temp 98.1 Pulse 81 64 Resp 20 B/P (MAP) 142/83 (102) 142/83 123/78 (93) Pulse Ox 95 89 O2 Delivery Room Air 05/14/18 05/14/18 05/14/18 05/14/18 15:29 15:42 15:59 16:00 Pulse 72 B/P (MAP) 129/65 (86) 121/77 (92) Pulse Ox 91 93 05/14/18 05/14/18 05/14/18 05/14/18 16:05 16:30 16:35 17:00 Pulse 67 69 B/P (MAP) 123/78 (93) 114/59 (77) Pulse Ox 90 92 05/14/18 17:05 Pulse 69 Pulse Ox 89 Physical Exam General Appearance: The patient is alert, has no immediate need for airway protection and no signs of toxicity. Eyes: Pupils equal and round no pallor or injection. ENT, Mouth: Mucous membranes are moist. Respiratory: There are no retractions, lungs are clear to auscultation. Cardiovascular: Regular rate and rhythm, no murmurs, clicks or rubs. Gastrointestinal: Abdomen is soft, mild tenderness to the suprapubic region with palpation, no masses, bowel sounds normal. Neurological: Alert and oriented 4. Moving all from these. Following all commands. No focal neuro deficits. Skin: Warm and dry, no rashes. Musculoskeletal: Neck is supple non tender. Extremities are nontender, nonswollen and have full range of motion. DIFFERENTIAL DIAGNOSIS: After history and physical exam differential diagnosis was considered for urinary retention including but not limited to medication side effect, neurologic causes, outflow obstruction including prostatic hypertrophy, and blood. Medical Decision Making Data Points Result Diagram: 05/14/18 1505 05/14/18 1505 Laboratory Hematology Test 05/14/18 15:05 05/14/18 15:49 Red Blood Count 3.56 M/uL (4.00-5.60) Mean Corpuscular Volume 86.3 fL (80.0-96.0) Mean Corpuscular Hemoglobin 30.2 pg (26.0-33.0) Mean Corpuscular Hemoglobin Concent 35.0 g/dL (32.0-36.0) Red Cell Distribution Width 13.9 % (11.5-14.5) Mean Platelet Volume 8.0 fL (7.2-11.1) Neutrophils (%) (Auto) 87.0 % (39.4-72.5) Lymphocytes (%) (Auto) 7.5 % (17.6-49.6) Monocytes (%) (Auto) 5.1 % (4.1-12.4) Eosinophils (%) (Auto) 0.1 % (0.4-6.7) Basophils (%) (Auto) 0.3 % (0.3-1.4) Nucleated RBC Relative Count (auto) 0.0 /100WBC Neutrophils # (Auto) 6.8 K/uL (2.0-7.4) Lymphocytes # (Auto) 0.6 K/uL (1.3-3.6) Monocytes # (Auto) 0.4 K/uL (0.3-1.0) Eosinophils # (Auto) 0.0 K/uL (0.0-0.5) Basophils # (Auto) 0.0 K/uL (0.0-0.1) Nucleated RBC Absolute Count (auto) 0.00 K/uL Prothrombin Time 14.0 seconds (12.0-14.4) Prothromb Time International Ratio 1.08 Activated Partial Thromboplast Time 26 seconds (23-35) Sodium Level 126 mmol/L (137-145) Potassium Level 3.2 mmol/L (3.5-5.0) Chloride Level 96 mmol/L (98-107) Carbon Dioxide Level 21 mmol/L (22-30) Blood Urea Nitrogen 10 mg/dl (9-21) Creatinine 0.70 mg/dl (0.66-1.25) Glomerular Filtration Rate Calc > 60.0 Random Glucose 127 mg/dl (75-110) Calcium Level 7.9 mg/dl (8.4-10.2) Total Bilirubin 0.6 mg/dl (0.2-1.3) Aspartate Amino Transf (AST/SGOT) 19 U/L (0-35) Alanine Aminotransferase (ALT/SGPT) 31 U/L (0-56) Alkaline Phosphatase 44 U/L (0-126) Total Protein 5.7 g/dl (6.3-8.2) Albumin 3.3 g/dl (3.5-5.0) Urine Color Red Urine Clarity Slightly-cloudy Urine pH 5.0 pH (4.8-9.5) Urine Specific Elmo 1.012 Urine Protein 30 mg/dL (NEGATIVE) Urine Glucose (UA) 50 mg/dL (NEGATIVE) Urine Ketones Negative mg/dL (NEGATIVE) Urine Blood Moderate (NEGATIVE) Urine Nitrite Positive (NEGATIVE) Urine Bilirubin Negative (NEGATIVE) Urine Urobilinogen Negative mg/dL (0.2-1.9) Urine Leukocyte Esterase Negative (NEGATIVE) Urine RBC 95671 /HPF (0-2/HPF) Urine WBC 51 /HPF (0-5/HPF) Urine Squamous Epithelial Cells None /LPF (NONE-FEW) Urine Bacteria Negative /HPF (NONE-FEW) Urine Mucus None /HPF (NONE-FEW) Chemistry Test 05/14/18 15:05 05/14/18 15:49 White Blood Count 7.8 k/uL (4.5-11.0) Red Blood Count 3.56 M/uL (4.00-5.60) Hemoglobin 10.7 g/dL (14.0-18.0) Hematocrit 30.7 % (42.0-52.0) Mean Corpuscular Volume 86.3 fL (80.0-96.0) Mean Corpuscular Hemoglobin 30.2 pg (26.0-33.0) Mean Corpuscular Hemoglobin Concent 35.0 g/dL (32.0-36.0) Red Cell Distribution Width 13.9 % (11.5-14.5) Platelet Count 154 K/uL (150-450) Mean Platelet Volume 8.0 fL (7.2-11.1) Neutrophils (%) (Auto) 87.0 % (39.4-72.5) Lymphocytes (%) (Auto) 7.5 % (17.6-49.6) Monocytes (%) (Auto) 5.1 % (4.1-12.4) Eosinophils (%) (Auto) 0.1 % (0.4-6.7) Basophils (%) (Auto) 0.3 % (0.3-1.4) Nucleated RBC Relative Count (auto) 0.0 /100WBC Neutrophils # (Auto) 6.8 K/uL (2.0-7.4) Lymphocytes # (Auto) 0.6 K/uL (1.3-3.6) Monocytes # (Auto) 0.4 K/uL (0.3-1.0) Eosinophils # (Auto) 0.0 K/uL (0.0-0.5) Basophils # (Auto) 0.0 K/uL (0.0-0.1) Nucleated RBC Absolute Count (auto) 0.00 K/uL Prothrombin Time 14.0 seconds (12.0-14.4) Prothromb Time International Ratio 1.08 Activated Partial Thromboplast Time 26 seconds (23-35) Glomerular Filtration Rate Calc > 60.0 Calcium Level 7.9 mg/dl (8.4-10.2) Total Bilirubin 0.6 mg/dl (0.2-1.3) Aspartate Amino Transf (AST/SGOT) 19 U/L (0-35) Alanine Aminotransferase (ALT/SGPT) 31 U/L (0-56) Alkaline Phosphatase 44 U/L (0-126) Total Protein 5.7 g/dl (6.3-8.2) Albumin 3.3 g/dl (3.5-5.0) Urine Color Red Urine Clarity Slightly-cloudy Urine pH 5.0 pH (4.8-9.5) Urine Specific Elmo 1.012 Urine Protein 30 mg/dL (NEGATIVE) Urine Glucose (UA) 50 mg/dL (NEGATIVE) Urine Ketones Negative mg/dL (NEGATIVE) Urine Blood Moderate (NEGATIVE) Urine Nitrite Positive (NEGATIVE) Urine Bilirubin Negative (NEGATIVE) Urine Urobilinogen Negative mg/dL (0.2-1.9) Urine Leukocyte Esterase Negative (NEGATIVE) Urine RBC 57622 /HPF (0-2/HPF) Urine WBC 51 /HPF (0-5/HPF) Urine Squamous Epithelial Cells None /LPF (NONE-FEW) Urine Bacteria Negative /HPF (NONE-FEW) Urine Mucus None /HPF (NONE-FEW) Coagulation Test 05/14/18 15:05 Prothrombin Time 14.0 seconds Prothromb Time International Ratio 1.08 Activated Partial Thromboplast Time 26 seconds Urinalysis Test 05/14/18 15:49 Urine Color Red Urine Clarity Slightly-cloudy Urine pH 5.0 pH (4.8-9.5) Urine Specific Elmo 1.012 Urine Protein 30 mg/dL (NEGATIVE) Urine Glucose (UA) 50 mg/dL (NEGATIVE) Urine Ketones Negative mg/dL (NEGATIVE) Urine Blood Moderate (NEGATIVE) Urine Nitrite Positive (NEGATIVE) Urine Bilirubin Negative (NEGATIVE) Urine Urobilinogen Negative mg/dL (0.2-1.9) Urine Leukocyte Esterase Negative (NEGATIVE) Urine RBC 52648 /HPF (0-2/HPF) Urine WBC 51 /HPF (0-5/HPF) Urine Squamous Epithelial Cells None /LPF (NONE-FEW) Urine Bacteria Negative /HPF (NONE-FEW) Urine Mucus None /HPF (NONE-FEW) EKG/Imaging EKG Interpretation 12 lead EKG: Rhythm: Normal sinus rhythm, ventricular rate 78 bpm. Jeannette: normal QRS: normal ST segments: No ST depression or elevation identified, poor T-wave p rogression, flattened T waves in V1, V3 and V5 and V6 Nose and changes other than the flattened T waves from the 09/09/2017 EKG. ED Course/Re-evaluation Clinical Indication for ER IV: IV Access ED Course The patient was admitted to a room. A history of physical or pain. Differential diagnoses were considered. An IV was started. A CBC, CMP were obtained. H&H 10.7 and 30.7. Sodium 126, potassium 3.2, UA showing blood, nitrites, 15,000 urine red blood cells, 51 urine white blood cells. Bladder scans prior to Peralta insertion showing over 500 mL of urine. The Peralta catheter did pats without complication, 400 mL of hematuria noted in the Peralta bag. The urine did began to clear. Patient had significant relief after the Peralta was placed. Marked change in the blood work from yesterday, CBC Showing hemoglobin and hematocrit 4.84 and 14.6, chemistry showing sodium 142, potassium 3.8. I reviewed the lab studies with the patient, did contact Dr. Moyer as well Dr. Moyer would like the patient admitted to the medical floor by the hospitalist and will hopefully take the patient to surgery tomorrow for cystoscopy. I did contact Dr. Urbano the hospitalist on-call [facility], the patient will be admitted to medical floor for gross hematuria and urinary retention. The patient states his nausea has improved, dizziness and lightheadedness is improved as well. The patient had no other questions or concerns at this time. 05/14/2018 4:09:43 pm I did speak with Dr. moyer regarding the patients case he will try to take the patient to surgery tomorrow, he would like to admit to medicine. I did speak with Dr. Urbano the hospitalist, he will come and evaluate the patient for a possible admit. 05/14/2018 5:00:[address] Urbano did accept the patient in the hospitalist services, the patient will be admitted to the medical unit, patient did not take his Plavix or aspirin today. Patient will likely go to surgery tomorrow with Dr. Moyer. The patient is aware of this. Decision to Disposition Date: May 14, 2018 Decision to Disposition Time: 16:11 Depart Departure Latest Vital Signs Vital Signs Date Time Temp Pulse Resp B/P (MAP) Pulse Ox O2 Delivery O2 Flow Rate FiO2 05/14/18 17:05 69 89 05/14/18 17:00 114/59 (77) 05/14/18 14:36 98.1 20 Room Air Impression: Primary Impression: Hematuria Additional Impression: Urinary retention Condition: Improved Disposition: Admitted from ER New Scripts Tamsulosin Hcl (FLOMAX) 0.4 Mg Cap.er.24h 0.4 MG PO HS, #7 CAP 0 Refills Prov: YUVAL URBANO MD 05/14/18 Problem Qualifiers Primary Impression: Hematuria Hematuria type: gross Qualified Codes: R31.0 - Gross hematuria SD REBOLLAR DIRECTOR OF TAX SERVICES-BC May 14, 2018 14:38
[2018-05-14] MEDS ORDERED: ONDANSETRON 4 MG/2 ML VIAL IVP ONE (15:05)
[2018-05-14 15:11] LABS: PLATELET COUNT, AUTOMATED 154 K/uL (150-450)
[2018-05-14 15:57] LABS: INR 1.08
[2018-05-14] MEDS ORDERED: METO-233 PO (16:41)
[2018-05-14] MEDS ORDERED: ASPI-1471 PO (16:41)
[2018-05-14] MEDS ORDERED: TAMS0.4C25 PO (16:41)
--- NOTE | 2018-05-14 17:01 | EKG ---
FACILITY: [facility] [place] PATIENT NAME: MARIA INES LAYEN : [id number] MR: [id number] V: [id number] EXAM DATE: ORDERING PHYSICIAN: SD REBOLLAR TECHNOLOGIST: KAIT Anand Reason : DIZZINESS Blood Pressure : / mmHG Vent. Rate : 078 BPM Atrial Rate : 078 BPM P-R Int : 160 ms QRS Dur : 114 ms QT Int : 434 ms P-R-T Axes : 052 -07 -22 degrees QTc Int : 494 ms Normal sinus rhythm Inferior infarct (cited on or before 09-SEP-2017) T inversion consistent with inferior ischemia vs normal variant QTc prolonged When compared with ECG of 09-SEP-2017 03:20, No significant change was found Confirmed by YUVAL URBANO ([id number]) on 05/14/2018 5:40:21 PM Referred By: SEBASTIEN Confirmed By:YUVAL URBANO
[2018-05-14] MEDS ORDERED: PROMETHAZINE 25 MG/ML 1 ML AMP IVP PRN (17:40)
[2018-05-14] MEDS ORDERED: [UNRECOGNIZED DRUG - CODE] PO (17:48)
[2018-05-14] MEDS ORDERED: ASPI-757 PO (17:48)
[2018-05-14 17:49] VITALS: BP 104/64
--- NOTE | 2018-05-14 17:59 | History & Physical ---
History of Present Illness History of Present Illness 57yo male with a h/o TIA, CAD and is a current smoker who came to the ER for difficulty urinating and passing blood clots in urine. For the last couple of weeks, he has noticed that once every 5-7 days he will have some blood tinged urine and pass a blood clot. Then the urine clears. 2 days ago, he started pa ssing all blood in his urine and it didn't improve. He had the sensation of not emptying his bladder completely. He went to the ER, yesterday. CT of the abdomen showed a large mass in the bladder that was likely hematoma. He was told to stop ASA, start Flomax and Bactrim, and follow up with Urology. This morning at 0400, he wasn't able urinate very much. He passed some large clots, but not much urine. He had worsening discomfort that he couldn't empty his bladder. He started getting some forearm cramping, nausea, and felt confused. He also noted some lightheadedness with standing. He denies f/c/cp/sob/diarrhea/vomiting. In the ER, he had a Peralta placed and had about 400cc of PVR. Initially, mostly blood came out, but has since started to clear a bit. He also received some Zofran. History Problems: (1) History of TIA (transient ischemic attack) Status: Chronic (2) History of pacemaker Status: Chronic (3) CAD (coronary artery disease) Status: Chronic (4) History of appendectomy (5) History of knee surgery (6) History of right inguinal hernia repair (7) HTN (hypertension) Home Meds Active Scripts Tamsulosin Hcl (FLOMAX) 0.4 Mg Cap.er.24h, 0.4 MG PO HS, #7 CAP 0 Refills Prov:YUVAL URBANO MD 05/14/18 Sulfamethoxazole/Trimet 800-160 Mg Tab (BACTRIM DS TABLET) 1 Each Tablet, 1 TAB PO Q12H, #14 TAB 0 Refills Prov:JACKELYN ADAMSON MD 05/13/18 Reported Medications Metoprolol Succinate (TOPROL XL) 50 Mg Tab.er.24h, 1 TAB PO HS, TAB 05/14/18 Aspirin (ASPIR 81) 81 Mg Tablet.dr, 81 MG PO HS, TAB 05/14/18 Lisinopril (LISINOPRIL) 10 Mg Tablet, 10 MG PO HS, TAB 05/13/18 Clopidogrel Bisulfate (PLAVIX) 75 Mg Tablet, 1 TAB PO HS, TAB 05/13/18 Atorvastatin Calcium (LIPITOR) 40 Mg Tablet, 2 TAB PO QHS, TAB 05/13/18 Discontinued Reported Medications Metoprolol Tartrate (METOPROLOL TARTRATE) 25 Mg Tablet, 2 TAB PO BID, TAB 05/13/18 Lisinopril (LISINOPRIL) 10 Mg Tablet, 10 MG PO QDAY, TAB 09/09/17 Metoprolol Succinate (METOPROLOL SUCCINATE) 25 Mg Tab.er.24h, 1 TAB PO QDAY, TAB 09/09/17 Simvastatin (SIMVASTATIN) 20 Mg Tablet, PO HS, TAB 09/09/17 Allergies: Coded Allergies: No Known Drug Allergies (Unverified , 06/02/16) Other Social/Family Hx No alcohol use. . 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 Hx Smoking: Yes (1/2 PPD) Smoking Status: Current: Every Day Smoker Hx Alcohol Use: No Review of Systems All Systems Reviewed/Normal: Yes, Except as Noted Exam Vital Signs Vital Signs Date Time Temp Pulse Resp B/P (MAP) Pulse Ox O2 Delivery O2 Flow Rate FiO2 05/14/18 16:00 121/77 (92) 05/14/18 15:59 72 93 05/14/18 14:36 98.1 20 Room Air General Appearance: Alert, Awake, No Acute Distress Neuro: No Gross deficits Eyes: PERRLA ENT: Moist Mucous Membranes Cardiovascular: Regular Rate and Rhythm Respiratory: Clear to Auscultation GI: Abd Soft and Non-Tender (feels like he has to pee with suprapubic pressure) Extremities: No Edema Integumentary: No Jaundice, No Cyanosis Medical Decision Making Data Points Result Diagram: 05/14/18 1505 05/14/18 1505 Item Value Date Time Sodium Level 126 mmol/L L 05/14/18 1505 Sodium Level 142 mmol/L 05/13/18 0943 Potassium Level 3.8 mmol/L 05/13/18 0943 Potassium Level 3.2 mmol/L L 05/14/18 1505 Carbon Dioxide Level 21 mmol/L L 05/14/18 1505 Carbon Dioxide Level 24 mmol/L 05/13/18 0943 Blood Urea Nitrogen 16 mg/dl 05/13/18 0943 Blood Urea Nitrogen 10 mg/dl 05/14/18 1505 Creatinine 0.70 mg/dl 05/14/18 1505 Creatinine 0.70 mg/dl 05/13/18 0943 Random Glucose 113 mg/dl H 05/13/18 0943 Random Glucose 127 mg/dl H 05/14/18 1505 Total Bilirubin 0.6 mg/dl 05/14/18 1505 Aspartate Amino Transf (AST/SGOT) 19 U/L 05/14/18 1505 Alanine Aminotransferase (ALT/SGPT) 31 U/L 05/14/18 1505 Alkaline Phosphatase 44 U/L 05/14/18 1505 Hemoglobin 10.7 g/dL L 05/14/18 1505 Hemoglobin 14.6 g/dL 05/13/18 0943 White Blood Count 7.5 k/uL 05/13/18 0943 White Blood Count 7.8 k/uL 05/14/18 1505 Platelet Count 154 K/uL 05/14/18 1505 Platelet Count 182 K/uL 05/13/18 0943 Neutrophils (%) (Auto) 67.8 % 05/13/18 0943 Neutrophils (%) (Auto) 87.0 % H 05/14/18 1505 Prothromb Time International Ratio 1.08 05/14/18 1505 Prothromb Time International Ratio 0.98 05/13/18 0943 Urine RBC Tntc /HPF 05/13/18 0943 Urine WBC None /HPF 05/13/18 0943 Urine Squamous Epithelial Cells None /LPF 05/13/18 0943 Urine Leukocyte Esterase Color interference 05/13/18 0943 Urine Urobilinogen Color interference mg/dL 05/13/18 0943 Urine Nitrite Color interference 05/13/18 0943 Urine Blood Color interference 05/13/18 0943 EKG / Imaging EKG Interpretation Vent. Rate : 078 BPM Atrial Rate : 078 BPM P-R Int : 160 ms QRS Dur : 114 ms QT Int : 434 ms P-R-T Axes : 052 -07 -22 degrees QTc Int : 494 ms Normal sinus rhythm Inferior infarct (cited on or before 09-SEP-2017) T inversion consistent with inferior ischemia vs normal variant QTc prolonged When compared with ECG of 09-SEP-2017 03:20, No significant change was found Confirmed by YUVAL URBANO ([id number]) on 05/14/2018 5:40:21 PM Imaging 05/15/18 CT of abd/pelvis - 1. There is a 6.8 x 3.6 x 6.5 cm high attenuation bladder most most consistent with hematoma. Underlying mass lesion not excluded. Recommend urology consultation. 2. Negative examination for a radiopaque urinary tract calculus or hydronephrosis. Assessment and Plan Problems: (1) Hematuria Status: Acute Assessment & Plan: He presented with 2-3 days of hematuria and inability to urinate much with clots since 0400. Peralta catheter initially had blood with clots, but now urine is clearing. Hgb is down almost 4 grams since yesterday. His BP/P are stable but has had lightheadedness with standing today. CT of the abd/pelvis yesterday showed a large bladder mass that was likely a hematoma. ASA and Plavix were last taken yesterday and they will be stopped for now. A Hgb will be repeated in a couple hours with a type and screen. Dr. Jensen is aware of the patient and asked that the Hospitalists admit the patient. He is likely going to do a cystoscopy tomorrow, so patient will be NPO after midnight. (2) Urinary retention Status: Acute Assessment & Plan: Secondary to bladder mass and/or clots. He had about 400cc of PVR. Peralta in place. (3) Hyponatremia Status: Acute Assessment & Plan: Etiology unclear. He is not on any offending medications. Possibly the urine retention vs lab error. Repeat. (4) History of TIA (transient ischemic attack) Status: Chronic Assessment & Plan: He was sent to [facility] in [place] in August for escalating repeating left affecting TIA. He was already on ASA, then, so Plavix was added. No other interventions were done. Those will be held, as above. (5) CAD (coronary artery disease) Status: Chronic Assessment & Plan: He had an W[place] about 12 years ago. ASA to be held. Continue chronic Atorvastatin. (6) History of pacemaker Status: Chronic Assessment & Plan: This was placed after his [place]. The unit was changed about a year ago. He is not paced on ECG. (7) Currently smokes tobacco Status: Acute Assessment & Plan: He continues to smoke 1/2-1ppd. He will use his own nicot ine lozenges while in the hospital. Copies to: BARRY JENSEN MD ; Venous Thromboembolism Antithrombotics Is Pt On Any Antithrombotics?: No Exam Sepsis Risk: No Definite Risk Problem Qualifiers (1) Hematuria: Hematuria type: gross Qualified Codes: R31.0 - Gross hematuria YUVAL URBANO MD May 14, 2018 17:59
[2018-05-14] MEDS ORDERED: NS(*) 0.9% 1000 ML BAG 1,000 ML IV PRN ×2 (18:35→20:53)
[2018-05-14] MEDS ORDERED: NS 0.9% IRRIGATION 500 ML PLCT 500 ML IR ONE (18:35)
[2018-05-14 19:18] LABS: PLATELET COUNT, AUTOMATED 174 K/uL (150-450)
[2018-05-14 19:48] VITALS: BP 112/65
[2018-05-14] MEDS ORDERED: GLYCOPYRROLATE 0.2MG/ML 1 ML INJ IVP PRN (20:10)
[2018-05-14] MEDS ORDERED: OXYBUTYNIN CHL XL 5 MG TABCR PO PRN (20:10)
[2018-05-14] MEDS: LISINOPRIL 10 MG TAB PO SCH (21:00)
[2018-05-14] MEDS: METOPROLOL SUCC XL 50 MG TABCR 50 MG TAB.ER.24H PO SCH (21:00)
[2018-05-14 21:15] VITALS: BP 118/61
[2018-05-14] MEDS: MELATONIN 3 MG TAB PO SCH (21:18)
[2018-05-14] MEDS: diphenhydrAMINE 25 MG CAP PO SCH (21:18)
[2018-05-14] MEDS: ATORVASTATIN 40 MG TAB PO SCH (21:19)
[2018-05-14] MEDS: cefTRIAXone 1 GM VIAL IVP SCH (21:20)
[2018-05-15] VITALS (18 sets, daily range): BP systolic 80–137; BP diastolic 60–84; Ht 175.3 cm; Wt 74.4 kg
[2018-05-15 05:54] LABS: PLATELET COUNT, AUTOMATED 159 K/uL (150-450)
[2018-05-15] MEDS ORDERED: NORMOSOL R SOLN(*) 1000 ML BAG 1,000 ML IV PRN (07:20)
--- NOTE | 2018-05-15 07:31 | RADIOLOGY IMAGING REPORT ---
FACILITY: [facility] [place] PATIENT NAME: Dariel Solis : 1960 MR: [id number] V: [id number] EXAM DATE: ORDERING PHYSICIAN: YUVAL URBANO TECHNOLOGIST: Location: [facility] Patient: Dariel Solis : 1960 Visit/Account:[id number] Date of Sevice: 05/15/2018 CHEST: Indication: Preoperative evaluation. Technique: Frontal and lateral views were obtained. Comparison: 09/09/2017 Skeletal and soft tissue structures: There are chronic degenerative changes in the shoulders and spin e. No acute skeletal deformity is identified. Heart and mediastinum: The heart size is normal. The cardiac pacemaker appears unchanged. Lung mcintosh: Well-expanded and clear. Pleural spaces: Unremarkable. Impression: No acute process or significant change. Report Dictated By: Ron Mclean MD at 05/15/2018 7:25 AM Report E-Signed By: Ron Mclean MD at 05/15/2018 7:27 AM WSN:[id number]
[2018-05-15] MEDS: NICOTINE POLACRILEX 4 MG LOZG PO PRN ×2 (08:38→19:23)
[2018-05-15] MEDS ORDERED: NS(*) 0.9% 500 ML BAG 500 ML IV PRN (08:45)
[2018-05-15] MEDS ORDERED: FAMOTIDINE 20 MG TAB PO ONE (09:00)
--- NOTE | 2018-05-15 09:06 | Hospitalist Progress Note ---
Subjective Progress Notes Subjective This patient was admitted for gross hematuria. He had no acute events overnight. Patient Complains of: Cardiovascular: No: Chest Pain Respiratory: No: Shortness of Breath Physical Exam Vital Signs Date Time Temp Pulse Resp B/P (MAP) Pulse Ox O2 Delivery O2 Flow Rate FiO2 05/15/18 08:54 96 Room Air 05/15/18 07:40 99.8 20 109/66 (80) 05/15/18 03:14 74 1.0 Intake and Output 05/15/18 07:00 Intake Total 1100 ml Output Total 4725 ml Balance -3625 ml Intake Oral 100 ml IV Total 1000 ml Output Urine Total 4725 ml Cardiovascular: Regular Rate and Rhythm Respiratory: Clear to Auscultation Result Diagram: 05/15/1852205/15/18522 Assessment and Plan Problems: (1) Hematuria Status: Acute Assessment & Plan: He presented with 2-3 days of gross hematuria and inability to urinate. He also had anuria, which was relieved after catheter placement. The catheter has shown gross blood and clots. A CT scan showed a bladder mass and likely hematoma. Dr. Ventura is planning on performing a cystoscopy later this morning. His aspirin and Plavix have been held. (2) Urinary retention Status: Acute Assessment & Plan: Resolved after catheter placement. (3) Hyponatremia Status: Acute Assessment & Plan: Improving with increased urine output. (4) History of TIA (transient ischemic attack) Status: Chronic Assessment & Plan: He was sent to [facility] in [place] in August for escalating repeating left affecting TIA. He is on chronic treatment with aspirin and Plavix, which are on hold as above. (5) CAD (coronary artery disease) Status: Chronic Assessment & Plan: He does have a previous history of infarction. (6) History of pacemaker Status: Chronic Assessment & Plan: This was placed after his PR. The unit was changed about a year ago. He is not paced on ECG. (7) Currently smokes tobacco Status: Acute Assessment & Plan: He continues to smoke 1/2-1ppd. He will use his own nicotine lozenges while in the hospital. Exam Sepsis Risk: No Definite Risk Problem Qualifiers (1) Hematuria: Hematuria type: gross Qualified Codes: R31.0 - Gross hematuria CUONGASHLEY GONSALEZ DO May 15, 2018 09:06
[2018-05-15] MEDS ORDERED: cefTRIAXone(*) 1 GM VIAL 1 GM in NS(*) 0.9% 100 ML ADDVANT BAG 100 ML IVPB ONE (12:20)
[2018-05-15] MEDS ORDERED: MINERAL OIL LIGHT 10 ML VIAL ONE (12:35)
[2018-05-15] MEDS ORDERED: HYDROCORTISONE 1% CR 28.35 GM TP ONE (12:35)
[2018-05-15] MEDS ORDERED: LIDOCAINE/SOD BICARB 8.4% SYR ONE (12:36)
[2018-05-15] MEDS ORDERED: fentaNYL CITR 100 MCG/2 ML AMP ONE ×3 (12:50→14:25)
[2018-05-15] MEDS ORDERED: LIDOCAINE 2% IV 100 MG/5ML SYR ONE (12:50)
[2018-05-15] MEDS ORDERED: PROPOFOL EMUL(*) 10MG/ML 20 ML 20 ML ONE (12:51)
[2018-05-15] MEDS ORDERED: DEXAMETHASONE SOD 4 MG/ML VIAL ONE (13:12)
[2018-05-15] MEDS ORDERED: ONDANSETRON 4 MG/2 ML VIAL ONE (13:12)
[2018-05-15] MEDS ORDERED: BELLADONNA ALKALOIDS/OPIUM 30 MG SUPP PR ONE (14:43)
[2018-05-15] MEDS ORDERED: ONDANSETRON 4 MG/2 ML VIAL IVP PRN (14:50)
[2018-05-15] MEDS ORDERED: WATER FOR IRRIG,STERILE 3000ML 3,000 ML IR PRN (14:50)
[2018-05-15] MEDS ORDERED: FLUSH 10 ML SYR IVP PRN (14:50)
[2018-05-15] MEDS ORDERED: NALOXONE HCL 0.4 MG/ML VIAL IVP PRN (14:50)
[2018-05-15] MEDS ORDERED: BELLADONNA ALKALOIDS/OPIUM 30 MG SUPP PR PRN (14:50)
[2018-05-15] MEDS ORDERED: HYDROmorphone PCA 6 MG/30 ML IV PRN (14:50)
[2018-05-15] MEDS ORDERED: PROPANTHELINE BROMIDE 15MG TAB PO PRN (14:50)
[2018-05-15] MEDS ORDERED: ZOLPIDEM TARTRATE 5 MG TAB PO PRN (14:50)
[2018-05-15] MEDS: ACETAMIN/CODEINE #3 300-30 MG PO PRN ×2 (16:13→21:16)
[2018-05-15] MEDS ORDERED: INFLUENZA VIRUS VAC 0.5ML SYR IM ONLY ONE (16:15)
[2018-05-15] MEDS: LR(*) 1000 ML BAG 1,000 ML IV PRN (17:09)
[2018-05-15] MEDS: METOPROLOL SUCC XL 50 MG TABCR 50 MG TAB.ER.24H PO SCH (21:00)
[2018-05-15] MEDS: BENZALKONIUM CL 1:750 TOP SOLN TP SCH (21:00)
[2018-05-15] MEDS: LISINOPRIL 10 MG TAB PO SCH (21:00)
[2018-05-15] MEDS: diphenhydrAMINE 25 MG CAP PO SCH (21:14)
[2018-05-15] MEDS: DOCUSATE SODIUM 100 MG CAP PO SCH (21:14)
[2018-05-15] MEDS: FAMOTIDINE 20 MG TAB PO SCH (21:14)
[2018-05-15] MEDS: cefTRIAXone 1 GM VIAL IVP SCH (21:14)
[2018-05-15] MEDS: NEOMYCIN/POLYMYX/BACITR OINT 1 PACKET TP SCH (21:15)
[2018-05-15] MEDS: MELATONIN 3 MG TAB PO SCH (21:15)
[2018-05-15] MEDS: ATORVASTATIN 40 MG TAB PO SCH (21:15)
[2018-05-16] MEDS: ACETAMIN/CODEINE #3 300-30 MG PO PRN ×2 (01:16→05:16)
[2018-05-16] MEDS: LR(*) 1000 ML BAG 1,000 ML IV PRN (01:16)
[2018-05-16 04:58] VITALS: BP 112/69
[2018-05-16 07:24] VITALS: BP 134/79
--- NOTE | 2018-05-16 08:09 | Hospitalist Progress Note ---
Subjective Progress Notes Subjective He denies any problems this AM. Urine has cleared/Peralta cath in place. Physical Exam Vital Signs Date Time Temp Pulse Resp B/P (MAP) Pulse Ox O2 Delivery O2 Flow Rate FiO2 05/16/18 07:56 82 05/16/18 07:30 Nasal Cannula 0.5 05/16/18 07:24 98.5 72 16 134/79 (97) Intake and Output 05/16/18 07:00 Intake Total 4853 ml Output Total 8025 ml Balance -3172 ml Intake Oral 1440 ml IV Total 1950 ml Blood Product 513 ml Other 950 ml Output Urine Total 8025 ml # Voids 1 General Appearance: Alert, Awake Cardiovascular: Regular Rate and Rhythm Respiratory: Clear to Auscultation Extremities: Warm, Perfused Result Diagram: 05/15/1852205/15/18522 Assessment and Plan Problems: (1) Hematuria Status: Acute Assessment & Plan: He presented with 2-3 days of gross hematuria and inability to urinate. Peralta cath was placed and showed gross blood and clots. A CT scan showed a bladder mass and likely hematoma. Dr. Ventura performed a cystoscopy yesterday. His aspirin and Plavix have been held. Hematuria has now resolved. Due to his history of CAD and TIA, he will need to resume antiplatelet therapy. It does not sound as if he would need dual therapy at this point. He probably could be aspirin 325mg daily. Will discuss with Dr. Ventura. (2) Urinary retention Status: Acute Assessment & Plan: Resolved after catheter placement. (3) Hyponatremia Status: Acute Assessment & Plan: Improving with increased urine output. (4) History of TIA (transient ischemic attack) Status: Chronic Assessment & Plan: He was sent to [facility] in [place] in August for TIA. He has been on chronic treatment with aspirin and Plavix, which are on hold as above. It does not sound as if he was a failure of aspirin as he was not taking on a regular basis prior to this event. (5) CAD (coronary artery disease) Status: Chronic Assessment & Plan: He does have a previous history of infarction and previous stent placement. He did have a year of dual antiplatelet therapy. (6) History of pacemaker Status: Chronic Assessment & Plan: This was placed after his IN. The unit was changed about a year ago. He is not paced on ECG. (7) Currently smokes tobacco Status: Acute Assessment & Plan: He continues to smoke 1/2-1ppd. He will use his own nicotine lozenges while in the hospital. Exam Sepsis Risk: No Definite Risk Problem Qualifiers (1) Hematuria: Hematuria type: gross Qualified Codes: R31.0 - Gross hematuria KAITLYN BURTON MD May 16, 2018 08:09
[2018-05-16] MEDS: FAMOTIDINE 20 MG TAB PO SCH (08:15)
[2018-05-16] MEDS: NICOTINE POLACRILEX 4 MG LOZG PO PRN (08:15)
[2018-05-16] MEDS: NEOMYCIN/POLYMYX/BACITR OINT 1 PACKET TP SCH (08:15)
[2018-05-16] MEDS: DOCUSATE SODIUM 100 MG CAP PO SCH (08:15)
[2018-05-16] MEDS: BENZALKONIUM CL 1:750 TOP SOLN TP SCH (08:16)
[2018-05-16] MEDS ORDERED: ASPI-757 PO (10:03)
--- NOTE | 2018-05-16 10:15 | Hospitalist Depart ---
Discharge Summary Reason for Hosp/Final Diag: (1) Hematuria Status: Acute Hospital Course & Plan: He presented with 2-3 days of gross hematuria and inability to urinate. Peralta cath was placed and showed gross blood and clots. A CT scan showed a bladder mass and likely hematoma. Dr. Jensen performed a cystoscopy yesterday. His aspirin and Plavix have been held. Hematuria has now resolved. Due to his history of CAD and TIA, he will need to resume antiplatelet therapy. It does not sound as if he would need dual therapy at this point. He will be started on aspirin 325mg daily. (2) History of TIA (transient ischemic attack) Status: Chronic Hospital Course & Plan: He was sent to [facility] in [place] in August for TIA. He has been on chronic treatment with aspirin and Plavix, which were placed on hold as above. It does not sound as if he was a failure of aspirin as he was not taking on a regular basis prior to this event. He will be started on aspirin 325mg daily and follow up with primary care provider and cardiology. (3) CAD (coronary artery disease) Status: Chronic Hospital Course & Plan: He does have a previous history of infarction and previous stent placement. He did have a year of dual antiplatelet therapy. He will be on aspirin 325mg daily as well as his statin and beta torin therapy. He will follow up with cardiology. (4) Urinary retention Status: Acute Hospital Course & Plan: Resolved after catheter placement. (5) Hyponatremia Status: Acute Hospital Course & Plan: Resolved. (6) History of pacemaker Status: Chronic Hospital Course & Plan: This was placed after his CT. The unit was changed about a year ago. He is not paced on ECG. (7) Currently smokes tobacco Status: Acute Hospital Course & Plan: He continues to smoke 1/2-1ppd. He used nicotine lozenges while in the hospital. Departure Weight (Pounds): 164 Result Diagram: 05/15/1852205/15/18522 Item Value Date Time Sodium Level 126 mmol/L L 05/14/18 1505 Potassium Level 3.2 mmol/L L 05/14/18 1505 Chloride Level 96 mmol/L L 05/14/18 1505 Carbon Dioxide Level 21 mmol/L L 05/14/18 1505 Blood Urea Nitrogen 10 mg/dl 05/14/18 1505 Creatinine 0.70 mg/dl 05/14/18 1505 Glomerular Filtration Rate Calc > 60.0 05/14/18 1505 Calcium Level 7.9 mg/dl L 05/14/18 1505 Total Bilirubin 0.6 mg/dl 05/14/18 1505 Aspartate Amino Transf (AST/SGOT) 19 U/L 05/14/18 1505 Alanine Aminotransferase (ALT/SGPT) 31 U/L 05/14/18 1505 Alkaline Phosphatase 44 U/L 05/14/18 1505 Total Protein 5.7 g/dl L 05/14/18 1505 Albumin 3.3 g/dl L 05/14/18 1505 Random Glucose 127 mg/dl H 05/14/18 1505 Sodium Level 134 mmol/L L 05/14/18 1906 Potassium Level 3.5 mmol/L 05/14/18 1906 Chloride Level 100 mmol/L 05/14/18 1906 Carbon Dioxide Level 26 mmol/L 05/14/18 1906 Blood Urea Nitrogen 11 mg/dl 05/14/18 1906 Creatinine 1.00 mg/dl 05/14/18 1906 Glomerular Filtration Rate Calc > 60.0 05/14/18 1906 Random Glucose 118 mg/dl H 05/14/18 1906 Calcium Level 8.5 mg/dl 05/14/18 1906 Magnesium Level 2.0 mg/dl 05/14/18 1906 Prothrombin Time 14.0 seconds 05/14/18 1505 Prothromb Time International Ratio 1.08 05/14/18 1505 Activated Partial Thromboplast Time 26 seconds 05/14/18 1505 White Blood Count 7.8 k/uL 05/14/18 1505 Hemoglobin 10.7 g/dL L 05/14/18 1505 Hematocrit 30.7 % L 05/14/18 1505 Platelet Count 154 K/uL 05/14/18 1505 Urine Mucus None /HPF 05/14/18 1549 Urine Bacteria Negative /HPF 05/14/18 1549 Urine Squamous Epithelial Cells None /LPF 05/14/18 1549 Urine WBC 51 /HPF 05/14/18 1549 Urine RBC 16085 /HPF 05/14/18 1549 Urine Leukocyte Esterase Negative 05/14/18 1549 Urine Urobilinogen Negative mg/dL 05/14/18 1549 Urine Bilirubin Negative 05/14/18 1549 Urine Nitrite Positive H 05/14/18 1549 Urine Blood Moderate 05/14/18 1549 Urine Ketones Negative mg/dL 05/14/18 1549 Urine Glucose (UA) 50 mg/dL H 05/14/18 1549 Urine Protein 30 mg/dL 05/14/18 1549 Urine Specific [place] 1.012 05/14/18 1549 Urine pH 5.0 pH 05/14/18 1549 Urine Clarity Slightly-cloudy 05/14/18 1549 Urine Color Red 05/14/18 1549 Imaging PATIENT NAME: Dariel Solis : 1960 MR: [id number] V: [id number] EXAM DATE: ORDERING PHYSICIAN: YUVAL URBANO TECHNOLOGIST: Location: [facility] [place] Patient: Dariel Solis : 1960 Visit/Account:[id number] Date of Sevice: 05/15/2018 CHEST: Indication: Preoperative evaluation. Technique: Frontal and lateral views were obtained. Comparison: 09/09/2017 Skeletal and soft tissue structures: There are chronic degenerative changes in the shoulders and spine. No acute skeletal deformity is identified. Heart and mediastinum: The heart size is normal. The cardiac pacemaker appears unchanged. Lung mcintosh: Well-expanded and clear. Pleural spaces: Unremarkable. Impression: No acute process or significant change. Report Dictated By: Ron Mclean MD at 05/15/2018 7:25 AM Report E-Signed By: Ron Mclean MD at 05/15/2018 7:27 AM WSN:[id number] Condition: Improved Discharge: Home, Self Care Time Spent: > 30 min Discharge Instructions Home Meds Active Scripts Aspirin (ASPIRIN) 325 Mg Tablet, 325 MG PO QDAY for 30 Days, #30 TAB 6 Refills One full dose aspirin daily Prov:KAITLYN BURTON MD 05/16/18 Tamsulosin Hcl (FLOMAX) 0.4 Mg Cap.er.24h, 0.4 MG PO HS, #7 CAP 0 Refills Prov:YUVAL URBANO MD 05/14/18 Reported Medications Ciprofloxacin Hcl (CIPROFLOXACIN HCL) 500 Mg Tablet, 500 MG PO Q12H, #20 TAB 05/16/18 Nicotine Polacrilex (Nicotine Lozenge) 2 Mg Lozng.mini, PO PRN 05/14/18 Metoprolol Succinate (TOPROL XL) 50 Mg Tab.er.24h, 1 TAB PO HS, TAB 05/14/18 Lisinopril (LISINOPRIL) 10 Mg Tablet, 10 MG PO HS, TAB 05/13/18 Atorvastatin Calcium (LIPITOR) 40 Mg Tablet, 2 TAB PO QHS, TAB 05/13/18 Discontinued Reported Medications Clopidogrel Bisulfate (PLAVIX) 75 Mg Tablet, 1 TAB PO HS, TAB 05/13/18 Metoprolol Tartrate (METOPROLOL TARTRATE) 25 Mg Tablet, 2 TAB PO BID, TAB 05/13/18 Lisinopril (LISINOPRIL) 10 Mg Tablet, 10 MG PO QDAY, TAB 09/09/17 Metoprolol Succinate (METOPROLOL SUCCINATE) 25 Mg Tab.er.24h, 1 TAB PO QDAY, TAB 09/09/17 Simvastatin (SIMVASTATIN) 20 Mg Tablet, PO HS, TAB 09/09/17 Discontinued Scripts Sulfamethoxazole/Trimet 800-160 Mg Tab (BACTRIM DS TABLET) 1 Each Tablet, 1 TAB PO Q12H, #14 TAB 0 Refills Prov:JACKELYN ADAMSON MD 05/13/18 Diet: Low Cholesterol & Sat Fat Activity: As Tolerated Special Instructions: Follow up with cardiology in next 2-3 weeks. Follow up with Primary Care Provider of your choice in next 1-2 weeks. Return to [facility] if any problems. Copies to: BARRY JENSEN MD; ISIDRO GEORGE MD ; Venous Thromboembolism Antithrombotics Is Pt On Any Antithrombotics?: No Problem Qualifiers (1) Hematuria: Hematuria type: gross Qualified Codes: R31.0 - Gross hematuria KAITLYN BURTON MD May 16, 2018 10:15
[2018-05-16] MEDS ORDERED: CIPR-214 PO (10:25)
--- NOTE | 2018-05-16 13:38 | OPERATIVE REPORT 1 ---
EVENT DATE: May 15, 2018 SURGEON: Tevin Ventura MD ANESTHESIOLOGIST: Chaka Gupta MD ANESTHESIA: General PREOPERATIVE DIAGNOSES 1. Gross hematuria. 2. Clot retention, etiology ? POSTOPERATIVE DIAGNOSES 1. Gross hematuria. 2. Clot retention, etiology ? PROCEDURES PERFORMED 1. Cystourethroscopy. 2. Evacuation of approximately 250 mL of old blood clots. No active bleeding was found on examining the surface of the bladder in its entirety. There were a few inflammatory lesions on the upper posterior wall of the bladder. There appeared to be no active bleeding from these lesions. The lesions, approximately three to four, were fulgurated in their entirety. The blood clots appeared to be evacuated from the bladder. Again, on review and inspection of the bladder, there was no evidence of any active bleeding. Bladder capacity under anesthesia at approximately 750 mL. On drainage of the bladder, there was no bloody drainage. On reinspection of the bladder, there were no glomerulations. No blood was visible effluxing from either ureteral orifice. The urethra was normal. The prostate showed trilobar hyperplasia with obstruction. Verumontanum was normal. The bladder was drained. The scope was withdrawn. The patient tolerated the procedure satisfactorily and returned to the recovery room in satisfactory condition. This is a 57-year-old white male who complained of gross hematuria this past Tuesday, was seen in Emergency Room on the April on Tuesday. Patient returned on Tuesday stating he was unable to void from early a.m. Patient was evaluated and was found to have over 500 mL of fluid his bladder. A Perlata was placed, and the bladder was drained of approximately 500 mL of grossly bloody urine. The urine had cleared substantially overnight. He only had brownish-tinged urine when interviewed this a.m. Historically, the patient had been bleeding and passing clots with no active bleeding, such as filling the bowl with blood had been noticed by the patient, but occasional passage of a small blood clot had been going on for approximately two weeks prior to the more adverse bleeding problem. Patient was admitted for evaluation and treatment. That has been accomplished. See operative note for details. Patient will be ready for discharge home when alert and functional, to force fluids 2 L per day. Activities are restricted to careful ambulation. He is to continue his usual medications. Copy of instructions were given to the patient. Patient will be discharged home on Cip, Pepcid, Pyridium, and Tylenol with codeine therapy. Plan followup in office as directed. MILTOND
== END 2018-05-16 10:40 | disposition home or self-care (01) | DRG 699 ==
LOC: ER 14:48 → MED 17:11
PROVIDERS: ADMIT Internal Medicine; ATTEND Internal Medicine
PROC: 30233R1 Transfusion of Nonautologous Platelets into Peripheral Vein, Percutaneous Approach (ICD-10-PCS; 2018-05-14)
PROC: 0TCB8ZZ Extirpation of Matter from Bladder, Via Natural or Artificial Opening Endoscopic (ICD-10-PCS; principal; 2018-05-15 13:12)
DX: N32.89 Other specified disorders of bladder (principal); E87.1 Hypo-osmolality and hyponatremia; N40.1 Benign prostatic hyperplasia with lower urinary tract symptoms; R31.0 Gross hematuria; I25.10 Atherosclerotic heart disease of native coronary artery without angina pectoris; R33.8 Other retention of urine; F17.210 Nicotine dependence, cigarettes, uncomplicated; I10 Essential (primary) hypertension; E78.5 Hyperlipidemia, unspecified; Z95.0 Presence of cardiac pacemaker; Z86.73 Personal history of transient ischemic attack (TIA), and cerebral infarction without residual deficits; Z79.82 Long term (current) use of aspirin; Z95.5 Presence of coronary angioplasty implant and graft; I25.2 Old myocardial infarction
CPT/HCPCS: 36415; 71046; 81001; 82040; 82247; 82310; 82374; 82435; 82565; 82947; 83735; 84075; 84132; 84155; 84295; 84450; 84460; 84520; 85025; 85610; 85730; 86850; 86900; 86901; 93005; 96374; 99284; A4338; J0696; J1100; J2001; J2405; J2550; J2704; J3010; J3490; J7030; J7050; J7120; P9035; Q0163